=== PATIENT | male | born 2000 | race Two or more races ===

== ENCOUNTER 2020-04-18 09:38 | Emergency (ER) | payer MEDICAID ==
[~2020-04-18] VITALS: Ht 177.8 cm; Wt 99.2 kg
--- NOTE | 2020-04-18 09:55 | NUR ---
various scabs and wounds noted to L and R arms. R arm is wrapped in a dirty dressing. pt states there is an infection under the dressings and c/o cyst to R shoulder. left hospital AMA yesterday stating "i felt better so i left because i wanted to take the bus back to [place], but now i don't feel well."
[2020-04-18] MEDS ORDERED: KETOROLAC 30 MG/1 ML ONE (10:08)
--- NOTE | 2020-04-18 10:16 | NUR ---
lab at bedside.
[2020-04-18 10:24] LABS: BASOPHILS % (AUTO) 1 % (0-1); EOSINOPHILS % (AUTO) 2 % (1-7); LYMPHOCYTES % (AUTO) 11 % (22-44); MEAN CORPUSCULAR HEMOGLOBIN 29.7 pg (27.5-34.5); MEAN CORPUSCULAR HGB CONC 34.6 g/dL (33.2-36.2); MEAN PLATELET VOLUME 7.2 fL (7.4-10.4); MONOCYTES % (AUTO) 7 % (2-9); NEUTROPHILS % (AUTO) 79 % (42-75); PLATELET COUNT 476 x10^3/uL (130-400); RED BLOOD COUNT 5.01 x10^6/uL (4.38-5.82); RED CELL DISTRIBUTION WIDTH 13.7 % (9.4-14.8)
[2020-04-18 10:29] LABS: MD NO
[2020-04-18] MEDS ORDERED: KETOROLAC 30 MG/1 ML IM ONE (10:30)
--- NOTE | 2020-04-18 10:36 | NUR ---
pt sleeping in bed. vss
[2020-04-18] MEDS ORDERED: NEOSPORIN OINT. PKT 1 PACKET ONE (11:11)
[2020-04-18 11:16] VITALS: BP 127/72
== END 2020-04-18 11:49 | disposition home or self-care (01) ==
LOC: ED 09:58
DX: L02.413 Cutaneous abscess of right upper limb (principal); L03.114 Cellulitis of left upper limb; M79.602 Pain in left arm; F17.200 Nicotine dependence, unspecified, uncomplicated
CPT/HCPCS: 36415; 85025; 96372; 99283; J1885